=== PATIENT | male | born 1995 | race Caucasian/White ===

== ENCOUNTER 2021-07-18 11:06 | Emergency (ER) | payer OTHER ==
[2021-07-18 12:48] LABS: CORONAVIRUS COVID-19 NAA NEGATIVE (NEGATIVE)
--- NOTE | 2021-07-18 13:51 | EDM.PDOC ---
ED HPI GENERAL MEDICAL PROBLEM - General Chief Complaint: Fever Stated Complaint: MANY COVID SYMPTOMS Time Seen by Provider: 07/18/21 13:49 Source of Information: Reports: Patient, RN, RN Notes Reviewed History Limitations: Reports: No Limitations - History of Present Illness INITIAL COMMENTS - FREE TEXT/NARRATIVE: Reuben is a 25 y/o male who presents to the ED via personal vehicle with complaints of chest tightness and cough. The patient reports his symptoms began three days ago following an episode of possible aspiration. The patient notes he was heavily intoxicated four day ago and woke up next to emesis; he is concerned he aspirated vomit. Additionally, he notes fever, headache, nausea, and muscle aches which began this morning. He denies dizziness, vision changes, chest pain, palpitations, shortness of breath, abdominal pain, vomiting, diarrhea, or constipation. He notes he has not drank alcohol over the past four days. He attests to eating and drinking fluids per his normal routine. He has taken one dose of ibuprofen last night which provided no alleviation in his symptoms. The patient attests to vaping nicotine frequently; he denies recreational drug use. Generalized Pain Score (Numeric/FACES): 10 - Related Data Home Meds: Home Meds Ibuprofen [Advil] 200 mg PO ASDIRECTED 07/18/21 [History] Past Medical History - Past Health History Medical/Surgical History: Denies Medical/Surgical History Social & Family History - Tobacco Use Tobacco Use Status *Q: Current Every Day Tobacco User Years of Tobacco use: 4 Packs/Tins Daily: 1 - Caffeine Use Caffeine Use: Reports: Coffee, Energy Drinks, Soda - Recreational Drug Use Recreational Drug Use: No ED ROS GENERAL - Review of Systems Review Of Systems: Comprehensive ROS is negative, except as noted in HPI. ED EXAM, GENERAL - Physical Exam Exam: See Below Exam Limited By: No Limitations General Appearance: Alert, No Apparent Distress, Other (Ill-appearing young male) Eye Exam: Bilateral Eye: EOMI, Normal Inspection, PERRL (3mm) Ears: Normal External Exam, Normal Canal, Hearing Grossly Normal, Normal TMs Ear Exam: Bilateral Ear: Erythema (To canal) Nose: Normal Inspection Throat/Mouth: Normal Inspection, Normal Oropharynx, Normal Voice, No Airway Compromise Head: Atraumatic, Normocephalic Neck: Normal Inspection, Supple, Non-Tender, Full Range of Motion. No: Lymphadenopathy (L), Lymphadenopathy (R) Respiratory/Chest: No Respiratory Distress, Normal Breath Sounds, No Accessory Muscle Use, Chest Non-Tender, Rales (To right mid-lobe) Cardiovascular: Normal Peripheral Pulses, Regular Rate, Rhythm, No Edema, No Gallop, No JVD, No Murmur, No Rub, Tachycardia Peripheral Pulses: 2+: Radial (L), Radial (R) GI/Abdominal: Normal Bowel Sounds, Soft, Non-Tender, No Distention, No Abnormal Bruit, No Mass, Pelvis Stable (Male) Exam: Deferred Rectal (Males) Exam: Deferred Back Exam: Normal Inspection, Full Range of Motion Extremities: Normal Inspection, Normal Range of Motion, Non-Tender, No Pedal Edema, Normal Capillary Refill Neurological: Alert, Oriented, CN II-XII Intact, Normal Cognition, Normal Gait, No Motor/Sensory Deficits Psychiatric: Normal Affect, Normal Mood Skin Exam: Warm, Dry, Intact, Normal Color, No Rash. No: Cyanosis, Jaundice, Mottled, Pallor Course - Vital Signs Last Recorded V/S: Last Vital Signs Temp 101.1 F H 07/18/21 11:58 Pulse 111 H 07/18/21 11:58 Resp 22 H 07/18/21 11:58 BP 113/70 07/18/21 11:58 Pulse Ox 95 07/18/21 11:58 - Orders/Labs/Meds Labs: Laboratory Tests 07/18/21 Range/Units 11:49 Influenza Type A RNA Positive H (NEGATIVE) Influenza Type B RNA Negative (NEGATIVE) SARS-CoV-2 RNA (DAVID) Negative (NEGATIVE) Meds: Medications Discontinued Medications Generic Name Dose Route Start Last Admin Trade Name Alba PRN Reason Stop Dose Admin Benzonatate 100 mg 07/18/21 14:01 07/18/21 14:22 Benzonatate 100 Mg Cap PO 07/18/21 14:02 100 mg ONETIME ONE Administration Ibuprofen 200 mg 07/18/21 14:01 07/18/21 14:22 Ibuprofen 200 Mg Tab PO 07/18/21 14:02 200 mg ONETIME ONE Administration - Re-Assessments/Exams Free Text/Narrative Re-Assessment/Exam: 07/18/21 Given worry for aspiration, will obtain CXR. Findings of examination, lab work, and imaging reviewed with patient. Supportive cares for influenza discussed. Will treat cough with Tessalon. Red flag signs and symptoms which would warrant immediate reevaluation reviewed. Patient verbalized understanding and agreement with the plan of care. Departure - Departure Time of Disposition: 14:28 Disposition: Home, Self-Care 01 Condition: Good Clinical Impression: Influenza A - Discharge Information *PRESCRIPTION DRUG MONITORING PROGRAM REVIEWED*: Not Applicable *COPY OF PRESCRIPTION DRUG MONITORING REPORT IN PATIENT [place]: Not Applicable Instructions: Influenza, Adult Forms: ED Department Discharge Additional Instructions: Rx: Tessalon Perles 100mg (#15) 1.) You may take ibuprofen (Advil/Motrin) 400-800mg every six hours, as fever, muscle aches, and headache persist. You may also take acetaminophen (Tylenol) 650-1000mg every six hours, as symptoms persists. You may stagger these medications so you are taking a dose of either every three hours. 2.) Drink small, frequent sips of water to stay hydrated but avoid nausea. 3.) Eat a bland diet. Avoid spicy, greasy, high-fat foods. 4.) Do not return to normal activities until you are 24 hour fever-free without fever reducing medications. 5.) Self-isolate from individuals who are not sick, especially the , elderly, and young. Sepsis Event Note (ED) - Focused Exam Vital Signs: Vital Signs Temp Pulse Resp BP Pulse Ox 07/18/21 11:58 101.1 F H 111 H 22 H 113/70 95
[2021-07-18] MEDS ORDERED: Ibuprofen 200 MG Tab PO ONE (14:01)
[2021-07-18] MEDS ORDERED: Benzonatate 100 MG Cap PO ONE (14:01)
--- NOTE | 2021-07-18 14:16 | CR ---
EXAMINATION: Chest 1V Frontal SEX: Male AGE: 25 years CLINICAL HISTORY: 25-year-old male with influenza (A positive) and "rales" right upper lobe. No comparisons. Interpretation: Negative exam. 1. Normal cardiac silhouette (size and configuration). Slight asymmetric elevation right hemidiaphragm. 2. No vascular congestion, cephalization of flow, alveolar edema or dependent pleural effusion. 3. No focal lobar alveolar consolidation, air bronchograms or peripheral "groundglass" interstitial lung densities (GGO). 4. No lung mass or hilar/mediastinal lymphadenopathy. Normal midline tracheal bronchial airway. 5. Bony thorax unremarkable. 6. No pneumothorax or pneumomediastinum. No free subdiaphragmatic air.
== END 2021-07-18 14:52 | disposition home or self-care (01) ==
LOC: DL.ED 11:06
DX: J10.1 Influenza due to other identified influenza virus with other respiratory manifestations (principal); Z72.0 Tobacco use; Z20.822 Contact with and (suspected) exposure to COVID-19
CPT/HCPCS: 0240U; 71045; 99283; A9270

== ENCOUNTER 2023-04-26 19:29 | Emergency (ER) | payer OTHER ==
[2023-04-26] MEDS ORDERED: Doxycycline Monohydrate 100 MG Cap PO ONE (20:10)
== END 2023-04-26 20:37 | disposition home or self-care (01) ==
LOC: DL.ED 19:29
DX: S51.851A Open bite of right forearm, initial encounter (principal); S51.831A Puncture wound without foreign body of right forearm, initial encounter; J45.909 Unspecified asthma, uncomplicated; F17.200 Nicotine dependence, unspecified, uncomplicated; Z88.8 Allergy status to other drugs, medicaments and biological substances; Z79.899 Other long term (current) drug therapy; W54.0XXA Bitten by dog, initial encounter
CPT/HCPCS: 99282; 99283; A9270-GY